=== PATIENT | male | born 1950 | race Caucasian/White ===

== ENCOUNTER → 2016-06-21 | Day surgery (SDC) | payer OTHER ==
[~2016-06-21] VITALS: Ht 180.3 cm; Wt 95.3 kg
[~2016-06-21] MED LIST: ASPIRIN325 M2 PO; ATACAND16 M1 PO; ATORVASTATIN CA80 M1 PO; METFORMIN HCL1000 M1 PO; METOPROLOL SUCC50 M2 PO; VITAMIN D250000 UNIT PO
--- NOTE | 2016-06-21 13:51 | Operative Report ---
Operative/Inv Procedure Report Surgery Date: 06/21/16 Name of Procedure: Left knee arthroscopic partial medial and lateral meniscectomy Pre-Operative Diagnosis: Left knee medial and lateral meniscal tear Mild osteoarthritis Post-Operative Diagnosis: Same Estimated Blood Loss: scant Surgeon/Bottle Hop: TAYLOR CAMARENA,LENCHO Anesthesia: laryngeal mask airway Implants: None Drains: None Specimens: None Tourniquet: Not used Complications: None Condition: Stable Operative Indication: Patient is a 65-year-old man who developed left knee pain. Due to ongoing symptoms that did not respond to treatment, MRI evaluation revealed tears of the medial lateral menisci as well as some degenerative changes. Due to ongoing symptoms, patient wished to proceed with arthroscopic management. Risks, benefits and expectations of surgical and further nonsurgical options were discussed including but not limited to persistent knee pain, need for subsequent surgery, infection, anesthesia risks as well as advancement of arthritis. Patient wished to proceed with arthroscopic treatment Operative/Procedure Note Note: Patient was brought to the operating room and transferred to the operating table. Once under appropriate anesthesia the left lower extremity was prepped and draped in standard fashion. Preoperative IV antibiotics were given prophylactically. A standard infrapatellar lateral portal site was established. Scope was inserted. Patellofemoral compartment was visualized. Some mild grade 1-2 chondral changes of the patellofemoral compartment were noted. No loose articular cartilage. I dropped into the medial joint. In doing so no evidence of pathologic plica. The medial meniscus was found to be intact from its anterior horn to mid body. There was a degenerative type tear of the posterior horn and junction of the mid body. I established a medial infrapatellar portal site under direct vision and I was able to probe this area and confirm the presence of the tear. I then used straight biters followed by shaver to complete the partial medial meniscectomy. I entered the notch. The ACL was found to be intact to direct visualization and normal vascularity. The leg was placed into a figure 4 position and the lateral meniscus was evaluated. There was a tear of the junction between the posterior horn and the mid body of the lateral meniscus as well as a posterior horn itself. I used the shaver to complete the partial lateral meniscectomy. 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 Copious irrigation the knee followed. I then went up the lateral gutter no evidence of loose bodies. I went up to the patellofemoral compartment and copiously irrigated knee. Fluid and instruments were removed from the knee and the portal sites were closed with interrupted nylon suture. Appropriate dressings were applied and patient was awakened and taken to recovery room in good condition. No intraoperative complications. Discharge Disposition: PACU
== END ==
LOC: STS 02:48
DX: M23.204 Derangement of unspecified medial meniscus due to old tear or injury, left knee (principal); M23.201 Derangement of unspecified lateral meniscus due to old tear or injury, left knee; I10 Essential (primary) hypertension; E11.9 Type 2 diabetes mellitus without complications; Z79.84 Long term (current) use of oral hypoglycemic drugs; E78.5 Hyperlipidemia, unspecified
CPT/HCPCS: J0131; J1100; J2250; J2405